=== PATIENT | female | born 1990 | race African-American/Black ===

== ENCOUNTER 2020-10-23 11:07 | Emergency (ER) | payer OTHER ==
[2020-10-23 11:20] VITALS: BP 90/60; PULSE 88; TEMP 97.9; BMI 28.3
[2020-10-23] MEDS ORDERED: FLUORESCEIN NA 1 EA STRIP ONE (12:31)
[2020-10-23] MEDS ORDERED: IBUPROFEN 400 MG TABLET (FP) PO ONE ×2 (12:47→12:51)
== END 2020-10-23 13:28 | disposition home or self-care (01) ==
LOC: JERFT 11:07
DX: H57.89 Other specified disorders of eye and adnexa (principal)
CPT/HCPCS: 99283-25

== ENCOUNTER 2020-10-25 12:47 | Inpatient (IN) | payer OTHER ==
[2020-10-25] MEDS ORDERED: diazePAM 2 MG TABLET PO ONE (14:06)
[2020-10-25] MEDS ORDERED: diazePAM 2 MG TABLET ONE (14:08)
[2020-10-25] MEDS ORDERED: KETOROLAC TROMETHAMINE 60 MG/2 ML VIAL IM ONE (16:41)
[2020-10-25] MEDS ORDERED: morphine CARPU-JECT 4 MG/1 ML DISP.SYRIN IVPUSH ONE (17:12)
[2020-10-25] MEDS ORDERED: morphine SULFATE 4 MG/ML VIAL ONE (18:16)
[2020-10-25 18:39] LABS: BASO % 0.4 % (0-2.0); EOS % 0.2 % (0-4.5); HEMATOCRIT 36.2 % (32.4-45.2); LYMPH % 25.5 % (8-40); MCH 27.3 pg (25.7-33.7); MCHC 33.2 g/dl (32.0-36.0); MEAN CELL VOLUME 82.2 fl (80-96); MEAN PLT VOLUME 6.7 fl (7.5-11.1); MONO % 5.5 % (3.8-10.2); NEUT % 68.4 % (42.8-82.8); PLATELET COUNT 346 10^3/uL (134-434); RDW 13.8 % (11.6-15.6)
[2020-10-25 18:46] LABS: INR 1.07 (0.83-1.09); PROTHROMBIN TIME (PATIENT) 12.9 SEC (9.7-13.0)
[2020-10-25 19:03] LABS: ALBUMIN 3.5 g/dl (3.4-5.0); BLOOD UREA NITROGEN 10.3 mg/dL (7-18); CALCIUM 8.7 mg/dL (8.5-10.1)
[2020-10-25 19:07] LABS: CREATININE 0.7 mg/dL (0.55-1.3)
[2020-10-25 19:08] LABS: BILIRUBIN,TOTAL 0.3 mg/dL (0.2-1); TOT PROT 7.2 g/dl (6.4-8.2)
[2020-10-25] MEDS ORDERED: diazePAM CARPU-JECT 10 MG/2 ML DISP.SYRIN IVPUSH ONE (19:09)
[2020-10-25] MEDS ORDERED: diazePAM CARPU-JECT 10 MG/2 ML DISP.SYRIN ONE (19:55)
[2020-10-26] MEDS ORDERED: ACETAMINOPHEN 1000 MG/100 ML VIAL (NON FORMULARY) IVPB PRN ×2 (00:27→10:21)
[2020-10-26] MEDS ORDERED: oxyCODONE HCL 10 MG SUSTAINED ACTING TABLET PO PRN (00:27)
[2020-10-26] MEDS ORDERED: MORPHINE SULFATE 2 MG/ML VIAL IVPUSH PRN ×2 (00:29→10:10)
[2020-10-26 01:16] VITALS: BMI 28.0
[2020-10-26] MEDS: MELATONIN 5 MG TABLETS PO PRN ×2 (01:49→22:17)
[2020-10-26] MEDS ORDERED: oxyCODONE HCL 5 MG TABLET PO PRN ×2 (08:02→09:07)
[2020-10-26 09:35] LABS: EPI CELLS 31 /uL (0-25.1); HYALINE CASTS 2 /uL (0-3.1); URINE APPEARANCE CLEAR; URINE BACTERIA 473 /uL (0-1359); URINE BILIRUBIN NEGATIVE (NEGATIVE); URINE COLOR YELLOW; URINE GLUCOSE (UA) NEGATIVE (NEGATIVE); URINE KETONE NEGATIVE (NEGATIVE); URINE LEUK ESTERASE NEGATIVE (NEGATIVE); URINE NITRITE NEGATIVE (NEGATIVE); URINE PROTEIN NEGATIVE (NEGATIVE); URINE RBC 17 /uL (0-23.9); URINE WBC 14 /uL (0-25.8)
[2020-10-26] MEDS ORDERED: POLYETHYLENE GLYCOL 3350 119 GM BTL PO SCH (10:00)
[2020-10-26] MEDS ORDERED: LIDOCAINE 5% TOPICAL PATCH TP SCH (10:00)
[2020-10-26] MEDS ORDERED: LIDOCAINE 5% TOPICAL PATCH TP ONE ×2 (10:17→13:45)
[2020-10-26] MEDS ORDERED: ACETAMINOPHEN 325 MG TABLET (FP) PO PRN (10:23)
[2020-10-26] MEDS: ENOXAPARIN NA (PORCINE) 40 MG/0.4 ML DISP.SYRIN SQ SCH (10:56)
[2020-10-26] MEDS: DOCUSATE SODIUM 100 MG CAPSULE (FP) PO SCH ×2 (10:56→21:04)
[2020-10-26] MEDS ORDERED: POLYETHYLENE GLYCOL (HEALTHYLAX) 3350 17 GM PACKET PO SCH (13:11)
[2020-10-26] MEDS: oxyCODONE HCL 5 MG TABLET PO PRN (21:04)
[2020-10-26] MEDS ORDERED: LIDOCAINE PATCH REMOVAL MC SCH (22:00)
[2020-10-26] MEDS ORDERED: LIDOCAINE PATCH REMOVAL MC ONE ×2 (22:00)
[2020-10-26] MEDS: CYCLOBENZAPRINE HCL 5 MG TABLET PO SCH (23:59)
[2020-10-27 06:25] VITALS: PULSE 88
[2020-10-27] MEDS: oxyCODONE HCL 5 MG TABLET PO PRN (08:39)
[2020-10-27 09:13] LABS: EOS % 0.7 % (0-4.5); HEMATOCRIT 33.1 % (32.4-45.2); HEMOGLOBIN 11.1 GM/dL (10.7-15.3); LYMPH % 34.9 % (8-40); MCH 27.5 pg (25.7-33.7); MCHC 33.4 g/dl (32.0-36.0); MEAN CELL VOLUME 82.3 fl (80-96); MONO % 6.4 % (3.8-10.2); PLATELET COUNT 315 10^3/uL (134-434); RBC 4.03 M/mm3 (3.60-5.2); RDW 13.8 % (11.6-15.6)
[2020-10-27 09:21] LABS: ALBUMIN 2.9 g/dl (3.4-5.0); BLOOD UREA NITROGEN 11.6 mg/dL (7-18)
[2020-10-27 09:24] LABS: CREATININE 0.6 mg/dL (0.55-1.3); PHOSPHOROUS 4.2 mg/dL (2.5-4.9)
[2020-10-27 09:26] LABS: BILIRUBIN,TOTAL 0.2 mg/dL (0.2-1)
[2020-10-27 09:27] LABS: TOT PROT 6.3 g/dl (6.4-8.2)
[2020-10-27] MEDS: CYCLOBENZAPRINE HCL 5 MG TABLET PO SCH (10:44)
[2020-10-27] MEDS: DOCUSATE SODIUM 100 MG CAPSULE (FP) PO SCH (10:44)
[2020-10-27] MEDS: ENOXAPARIN NA (PORCINE) 40 MG/0.4 ML DISP.SYRIN SQ SCH (10:45)
[2020-10-27 14:45] VITALS: BP 122/67; TEMP 98.3
== END 2020-10-27 20:40 | disposition home or self-care (01) | DRG 347 ==
LOC: JERFT 12:47 → JER 12:47 → JERBED 21:06 → OBSVTOIN 10-26 00:21 → J8W 10-26 00:53
PROVIDERS: ADMIT Internal Medicine; ATTEND Internal Medicine
DX: S32.028A Other fracture of second lumbar vertebra, initial encounter for closed fracture (principal); F17.210 Nicotine dependence, cigarettes, uncomplicated; S00.83XA Contusion of other part of head, initial encounter; F07.81 Postconcussional syndrome; T74.11XA Adult physical abuse, confirmed, initial encounter; Y08.89XA Assault by other specified means, initial encounter; Y93.89 Activity, other specified; Y92.89 Other specified places as the place of occurrence of the external cause; Y99.9 Unspecified external cause status
CPT/HCPCS: 36415; 70450-TC; 71250-TC; 72125-TC; 72131-TC; 72148-TC; 74176-TC; 80053; 81003; 83735; 84100; 84703; 85025; 85610; 86850; 86900; 86901; 93005; 93010; 97116-GP; 97161-GP; 99285-25; C9803; G0378; U0003; U0005

== ENCOUNTER 2021-02-28 20:54 | Emergency (ER) | payer OTHER ==
[2021-02-28 20:59] VITALS: BP 114/75; PULSE 76; TEMP 97.3; BMI 27.8
[2021-03-01] MEDS ORDERED: MAG HYDROX/AL HYDROX/SIMETH 30 ML UNIT-DOSE CUP PO ONE (00:26)
[2021-03-01] MEDS ORDERED: FAMOTIDINE 20 MG TABLET PO ONE (00:26)
[2021-03-01] MEDS ORDERED: FAMOTIDINE 20 MG TABLET ONE (00:31)
[2021-03-01] MEDS ORDERED: MAG HYDROX/AL HYDROX/SIMETH 30 ML UNIT-DOSE CUP ONE (00:31)
[2021-03-01 01:08] LABS: URINE APPEARANCE CLOUDY; URINE BILIRUBIN NEGATIVE (NEGATIVE); URINE COLOR YELLOW; URINE GLUCOSE (UA) NEGATIVE (NEGATIVE); URINE KETONE NEGATIVE (NEGATIVE); URINE LEUK ESTERASE NEGATIVE (NEGATIVE); URINE NITRITE NEGATIVE (NEGATIVE); URINE PROTEIN NEGATIVE (NEGATIVE); URINE UROBILINOGEN 0.2 mg/dL (0.2-1.0)
[2021-03-01 01:14] LABS: HCG,QUALITATIVE URINE Negative
== END 2021-03-01 02:03 | disposition home or self-care (01) ==
LOC: JER 20:54
DX: K29.00 Acute gastritis without bleeding (principal); K21.9 Gastro-esophageal reflux disease without esophagitis
CPT/HCPCS: 81003; 84703; 99283-25

== ENCOUNTER 2021-03-19 18:08 | Emergency (ER) | payer OTHER ==
[2021-03-19 18:32] VITALS: BP 101/70; PULSE 96; TEMP 97.3; BMI 27.4
== END 2021-03-19 19:12 | disposition home or self-care (01) ==
LOC: JERFT 18:08
DX: H60.502 Unspecified acute noninfective otitis externa, left ear (principal)
CPT/HCPCS: 99282-25

== ENCOUNTER 2021-04-22 18:23 | Emergency (ER) | payer OTHER ==
[2021-04-22 18:49] VITALS: BP 96/61; PULSE 82; TEMP 98.5; BMI 28.7
[2021-04-22] MEDS ORDERED: ACETAMINOPHEN/CAFFEINE/BUTALBITAL 1 TAB PO ONE (19:37)
[2021-04-22] MEDS ORDERED: ACETAMINOPHEN/CAFFEINE/BUTALBITAL 1 TAB ONE ×2 (19:47→19:48)
[2021-04-22] MEDS ORDERED: KETOROLAC TROMETHAMINE 30 MG/1 ML VIAL IM ONE (20:51)
[2021-04-22] MEDS ORDERED: METOCLOPRAMIDE HCL 10 MG TABLET (FP) PO ONE ×2 (20:52→21:17)
[2021-04-22] MEDS ORDERED: KETOROLAC TROMETHAMINE 30 MG/1 ML VIAL ONE (21:17)
== END 2021-04-22 22:47 | disposition home or self-care (01) ==
LOC: JER 18:23
PROC: 3E0233Z Introduction of Anti-inflammatory into Muscle, Percutaneous Approach (ICD-10-PCS; principal; 2021-04-22)
DX: R51.9 Headache, unspecified (principal)
CPT/HCPCS: 70450-TC; 84703; 99284-25

== ENCOUNTER 2021-05-03 21:30 | Emergency (ER) | payer OTHER ==
[2021-05-03 21:37] VITALS: BP 110/71; PULSE 81; TEMP 98.2; BMI 28.3
[2021-05-03] MEDS ORDERED: IBUPROFEN 600 MG TABLET (FP) PO ONE ×2 (22:14→22:17)
== END 2021-05-03 22:35 | disposition home or self-care (01) ==
LOC: JERFT 21:30
DX: H60.501 Unspecified acute noninfective otitis externa, right ear (principal)
CPT/HCPCS: 99283-25; C9803; U0003; U0005